=== PATIENT | male | born 1970 | race Caucasian/White ===

== ENCOUNTER 2018-10-16 20:11 | Emergency (ER) | payer SELFPAY ==
[~2018-10-16] VITALS: Ht 193 cm; Wt 95.3 kg
[2018-10-16] MEDS ORDERED: SODIUM CHLORIDE 0.9% 1000ML 1,000 ML IV ONE (20:45)
[2018-10-16] MEDS ORDERED: MULTIVITAMINS- 12 INJECTION 10 ML, FOLIC ACID MDV 5 MG, THIAMINE HCL INJ 100 MG in SODI... IV ONE (20:45)
== END 2018-10-17 00:38 | disposition left against medical advice (07) ==
LOC: ER 20:11
DX: R45.850 Homicidal ideations (principal)

== ENCOUNTER 2023-04-06 20:50 | Emergency (ER) | payer OTHER ==
[~2023-04-06] VITALS: Ht 193 cm; Wt 104.3 kg
[2023-04-06 21:21] VITALS: O2SAT 100
[2023-04-06] MEDS ORDERED: DOXYCYCLINE HY100 MG PO (21:27)
[2023-04-06] MEDS ORDERED: BACITRACIN ZINC 15 GM OINT ONE (21:31)
[2023-04-07] MEDS ORDERED: BACITRACIN ZINC 15 GM OINT TOP SCH (09:00)
== END 2023-04-06 21:45 | disposition home or self-care (01) ==
LOC: ER 20:55
DX: T21.25XA Burn of second degree of buttock, initial encounter (principal); T65.891A Toxic effect of other specified substances, accidental (unintentional), initial encounter; Y92.89 Other specified places as the place of occurrence of the external cause; I10 Essential (primary) hypertension
CPT/HCPCS: 99283